=== PATIENT | male | born 1965 | race Caucasian/White ===

== ENCOUNTER 2016-11-02 11:42 | Emergency (ER) | payer BC ==
[~2016-11-02] VITALS: Ht 172.7 cm; Wt 75.0 kg
[~2016-11-02 11:42] MED LIST: INDOCIN25 MG PO; LORTAB 10-325 M1 TAB PO; NO; PERCOCET 5/325M1 TAB PO; ZPAK PO
[2016-11-02 13:12] LABS: HEMATOCRIT 48.5 % (39.0-50.0); IMMATURE GRANULOCYTES 0.3 % (0.0-1.0); MEAN CORPUSCULAR HGB 31.9 pG CALC (26.0-32.0); MEAN CORPUSCULAR HGB CONC 37.1 g/L CALC (32.0-36.0); NEUT# 5.77 thou/uL (1.82-7.42); RED BLOOD COUNT 5.64 mill/uL (4.70-6.10)
[2016-11-02 13:13] LABS: ALBUMIN 4.4 g/dL (3.2-5.0); ALKALINE PHOSPHATASE 74 u/l (38-126); ANION GAP 15 (6-22 (CALC)); BILIRUBIN, TOTAL 1.3 mg/dL (0.0-1.4); BUN 10 mg/dL (9-20); BUN/CREATININE RATIO 11 (12-20 (CALC)); CALCIUM 9.5 mg/dL (8.4-10.2); CARBON DIOXIDE 28 mmol/l (22-30); CHLORIDE 105 mmol/l (95-108); CREATININE 0.9 mg/dL (0.7-1.3); GFR > 60 ML/MIN (>=60 (CALC)); GFR FOR AFR.AMER. > 60 ML/MIN (>=60 (CALC)); GLUCOSE 94 mg/dL (75-110); POTASSIUM 3.8 mmol/l (3.5-5.1); SGOT/AST 48 u/l (17-59); SGPT/ALT 77 u/l (21-72); SODIUM 144 mmol/l (137-146); TOTAL PROTEIN 7.3 g/dL (6.3-8.2)
[2016-11-02] MEDS ORDERED: CLONIDINE0.1 MG PO (14:45)
[2016-11-02] MEDS ORDERED: PREVACID30 M3 PO (14:45)
[2016-11-02 14:55] VITALS: BP 174/108
== END 2016-11-02 15:01 | disposition home or self-care (01) | DRG 156 ==
LOC: ED 11:42
PROVIDERS: Emergency Medicine
DX: R07.0 Pain in throat (principal); I10 Essential (primary) hypertension; B19.20 Unspecified viral hepatitis C without hepatic coma; F17.220 Nicotine dependence, chewing tobacco, uncomplicated; Z91.14 Patient's other noncompliance with medication regimen
CPT/HCPCS: Q9967

== ENCOUNTER 2022-04-29 09:21 | Inpatient (IN) | payer SELFPAY ==
[~2022-04-29] VITALS: Ht 172.7 cm; Wt 98.9 kg
[2022-04-29] VITALS (62 sets, daily range): BP systolic 124–283; BP diastolic 64–154
[~2022-04-29 09:21] MED LIST changes: +CLONIDINE0.1 MG PO; +PREVACID30 M3 PO
--- NOTE | 2022-04-29 09:34 | NUR ---
PT AMBULATES TO ROOM 14 FOR EVAL OF ELEVATED BP AND HEADACHE
[2022-04-29 09:54] LABS: IMMATURE GRANULOCYTES 0.1 % (0.0-5.0); MEAN CELL VOLUME 90.5 fL CALC (80.0-100.0); MEAN CORPUSCULAR HGB 32.5 pG CALC (26.0-32.0); MEAN CORPUSCULAR HGB CONC 35.9 g/dL CAL (32.0-36.0); NEUT# 5.93 thou/uL (1.82-7.42); RED BLOOD COUNT 3.91 mill/uL (4.70-6.10); RED CELL DISTRI WIDTH 12.8 % (11.5-15.5)
[2022-04-29 09:59] LABS: HEMATOCRIT 35.4 % (39.0-50.0); HEMOGLOBIN 12.7 g/dl (14.0-18.0)
[2022-04-29 10:19] LABS: BILIRUBIN, TOTAL 1.8 mg/dL (0.0-1.4); POTASSIUM 3.2 mmol/l (3.5-5.1); TOTAL PROTEIN 6.6 g/dL (6.3-8.2)
[2022-04-29 10:20] LABS: CREATININE 4.3 mg/dL (0.7-1.3)
--- NOTE | 2022-04-29 10:43 | NUR ---
REASSESSED. NAD. VITALS CHECKED, DR. ENGLISH IS AWARE OF ELEVATED BP. MEDICATED PER SEP. CALL LIGHT IS IN REACH. INSTRUCTED PATIENT FOR COLLECTING URINE SAMPLE.
[2022-04-29 11:10] LABS: URINE BILIRUBIN - DIPSTICK NEGATIVE (NEGATIVE); URINE BLOOD DIPSTICK LARGE (NEGATIVE); URINE COLOR YELLOW; URINE GLUCOSE - DIPSTICK NEGATIVE (NEGATIVE); URINE KETONE NEGATIVE (NEGATIVE); URINE LEUK ESTERASE NEGATIVE (NEGATIVE); URINE PROTEIN - DIPSTICK >=300 mg/dL (NEG-TRACE); URINE UROBILINOGEN - DIPSTICK 0.2 E.U./dL (0.2)
--- NOTE | 2022-04-29 11:30 | NUR ---
Reassessment of patient completed. No distress noted.
[2022-04-29 11:31] LABS: URINE NITRITE - DIPSTICK NEGATIVE (Negative)
[2022-04-29 11:39] LABS: URINE RBC 0-2 RBC/hpf (0-5)
[2022-04-29 11:40] LABS: URINE BACTERIA FEW hpf
[2022-04-29 11:41] LABS: URINE WBC 0-2 WBC/hpf (0-5)
--- NOTE | 2022-04-29 11:52 | NUR ---
PT BP WAS 188/102. LOWER THAT SBP GOAL TARGET. DR. ENGLISH INSTRUCTED FOR NICARDIPINE DRIP TO BE TITRATED DOWN TO 2.5 MG / HR.
--- NOTE | 2022-04-29 12:19 | NUR ---
PER DR. GARCIA, SBP TARGET IS 180 THEN STOP NICARDIPINE DRIP. PATIENT SBP TARGET IS 178. NICARDIPINE DRIP HAS BEEN STOPPED.
--- NOTE | 2022-04-29 12:26 | NUR ---
PATIENT DEPARTED ED VIA STRETCHER AND MONITOR WITH PATIENT BELONGINGS. PATIENT DIET TRAY WAS SENT WITH PATIENT. REPORT GIVEN TO BRIAN, RN FOR ICU BED 8, REPORTED THAT NICARDIPINE DRIP WAS STOPPED DUE TO DR. GARCIA VERBAL ORDER FOR IT TO BE STOPPED IF SBP TARGET DROPS BELOW 180. VITALS CHECKED. NAD. NO CONCERNS VERBALIZED.
--- NOTE | 2022-04-29 19:45 | NUR ---
awake. watching tv. denies distress. hall monitor shows sinus rhythm. #18 lfa. ivf infusing well. po fluids taken well. voids per urinal. fall precautions cont.
--- NOTE | 2022-04-29 22:00 | NUR ---
eyes closed. no distress. bread icer shows sinus rhythm.
[2022-04-30] VITALS (69 sets, daily range): BP systolic 124–180; BP diastolic 70–120
--- NOTE | 2022-04-30 00:01 | NUR ---
eyes closed. no distress. security monitor shows sinus rhythm.
--- NOTE | 2022-04-30 02:00 | NUR ---
resting quietly. resps even & unlabored. no apparent distress.
--- NOTE | 2022-04-30 05:03 | NUR ---
lab here. blood drawn.
[2022-04-30 05:15] LABS: HEMOGLOBIN 11.7 g/dl (14.0-18.0); MEAN CELL VOLUME 89.1 fL CALC (80.0-100.0); MEAN CORPUSCULAR HGB 32.6 pG CALC (26.0-32.0); MEAN CORPUSCULAR HGB CONC 36.6 g/dL CAL (32.0-36.0); RED BLOOD COUNT 3.59 mill/uL (4.70-6.10); RED CELL DISTRI WIDTH 12.4 % (11.5-15.5)
[2022-04-30 05:38] LABS: ALBUMIN 3.8 g/dL (3.2-5.0); CREATININE 4.8 mg/dL (0.7-1.3); POTASSIUM 3.3 mmol/l (3.5-5.1)
--- NOTE | 2022-04-30 19:45 | NUR ---
awake. denies distress. quality assurance monitor final shows sinus rhythm. #18 lfa ivf infusing well. po fluids taken well. voids per urinal. fall precautions cont.
--- NOTE | 2022-04-30 22:00 | NUR ---
eyes closed. no distress.
[2022-05-01] VITALS (53 sets, daily range): BP systolic 125–183; BP diastolic 71–108
--- NOTE | 2022-05-01 00:01 | NUR ---
eyes closed. ui engineer shows sinus rhythm.
--- NOTE | 2022-05-01 02:00 | NUR ---
reting quietly. resps even & unlabored. no apparent distress.
--- NOTE | 2022-05-01 04:00 | NUR ---
eyes closed. no distress.
--- NOTE | 2022-05-01 06:10 | NUR ---
lab here. blood drawn.
[2022-05-01 07:03] LABS: ALBUMIN 3.4 g/dL (3.2-5.0)
[2022-05-01 07:07] LABS: CREATININE 5.2 mg/dL (0.7-1.3); POTASSIUM 4.2 mmol/l (3.5-5.1)
[2022-05-02] VITALS (29 sets, daily range): BP systolic 116–194; BP diastolic 66–113
[2022-05-02 05:55] LABS: ALBUMIN 3.3 g/dL (3.2-5.0); CREATININE 4.9 mg/dL (0.7-1.3)
--- NOTE | 2022-05-02 10:11 | NUR ---
Pt off floor to Echo, and Ultrasound. Pt in no notable distress ant this time.
--- NOTE | 2022-05-02 18:44 | NUR ---
While having diner pt. became nauseous ansd had an episode of emisis. Pt stated he felt better afterwards, and stated he did not want an antiemtic.
[2022-05-03] VITALS (10 sets, daily range): BP systolic 113–152; BP diastolic 61–91
[2022-05-03 05:27] LABS: ALBUMIN 3.1 g/dL (3.2-5.0)
[2022-05-03 05:31] LABS: CREATININE 5.3 mg/dL (0.7-1.3)
[2022-05-03] MEDS ORDERED: NORMODYNE/TRAN100 MG PO (09:14)
[2022-05-03] MEDS ORDERED: NORVASC10 M1 PO (09:15)
[2022-05-03] MEDS ORDERED: HYDRALAZINE HC100 MG PO (09:16)
--- NOTE | 2022-05-03 10:09 | NUR ---
PT AAOX3, IN NO DISTRESS, AND DENIES ANY PAIN. DISCHARGE INSTRUCTIONS AND EDUCTION REVIEWED WITH PT. PT VERBALIZED UNDERSTANDING. PT GATHERED AL BELONGINGS. IV REMOVED, AND INTACT. DRESSING APPLIED. PT
== END 2022-05-03 09:40 | disposition home or self-care (01) | DRG 304 ==
LOC: ED 09:21 → ED-I 11:23 → ED 11:41 → ICU 11:42
PROVIDERS: Family Medicine; Internal Medicine Nephrology; ADMIT Internal Medicine; ATTEND Internal Medicine
DX: I16.1 Hypertensive emergency (principal); N17.0 Acute kidney failure with tubular necrosis; E87.1 Hypo-osmolality and hyponatremia; E87.20 Acidosis, unspecified; N18.4 Chronic kidney disease, stage 4 (severe); I12.9 Hypertensive chronic kidney disease with stage 1 through stage 4 chronic kidney disease, or unspecified chronic kidney disease; B18.2 Chronic viral hepatitis C; T46.5X6A Underdosing of other antihypertensive drugs, initial encounter; R80.9 Proteinuria, unspecified; R31.9 Hematuria, unspecified; E87.6 Hypokalemia; D64.9 Anemia, unspecified; F17.220 Nicotine dependence, chewing tobacco, uncomplicated; E83.39 Other disorders of phosphorus metabolism; Z91.120 Patient's intentional underdosing of medication regimen due to financial hardship

== ENCOUNTER 2024-08-13 11:33 | Observation (INO) | payer SELFPAY ==
[~2024-08-13] VITALS: Ht 172.7 cm; Wt 67.7 kg
[2024-08-13] VITALS (58 sets, daily range): BP systolic 122–246; BP diastolic 61–151
[~2024-08-13 11:33] MED LIST changes: +HYDRALAZINE HC100 MG PO; +NORMODYNE/TRAN100 MG PO; +NORVASC10 M1 PO
--- NOTE | 2024-08-13 11:33 | NUR ---
T TO ER ROOM 4
[2024-08-13 12:00] LABS: BASO% 0.7 % (0-3); EOS% 2.2 % (0-8); IMMATURE GRANULOCYTES 0.2 % (0.0-5.0); MEAN CELL VOLUME 90.3 fL CALC (80.0-100.0); MEAN CORPUSCULAR HGB 30.7 pG CALC (26.0-32.0); MONO% 5.8 % (2-13); NEUT# 7.03 thou/uL (1.82-7.42); NEUT% 74.1 % (42-76); RED BLOOD COUNT 4.72 mill/uL (4.70-6.10); RED CELL DISTRI WIDTH 13.9 % (11.5-15.5)
--- NOTE | 2024-08-13 12:00 | NUR ---
PT HAS HIGH BP AND HEADACHE 05/02. MD IS NOTIFIED. AWAITING MED ORDERS.
[2024-08-13 12:03] LABS: HEMATOCRIT 42.6 % (39.0-50.0); HEMOGLOBIN 14.5 g/dl (14.0-18.0)
[2024-08-13] MEDS ORDERED: hydrALAZINE HCL 20 MG/ML VIAL(1 ML) IV ONE ×2 (12:15→13:10)
[2024-08-13] MEDS ORDERED: ONDANSETRON HCl 4 MG/2 ML SDV IV ONE (12:15)
[2024-08-13 12:20] LABS: BILIRUBIN, TOTAL 1.2 mg/dL (0.2-1.3); POTASSIUM 4.3 mmol/l (3.5-5.1); TOTAL PROTEIN 6.8 g/dL (6.3-8.2)
--- NOTE | 2024-08-13 12:20 | NUR ---
PT EDUCATED ON NEED FOR A URINE SAMPLE. URIANAL PLACED AT BEDSIDE WITHIN REACH. CALL LIGHT AT SIDE. PT DENIES ANY CURRENT NEEDS.
[2024-08-13 12:24] LABS: ALBUMIN 3.9 g/dL (3.2-5.0); CREATININE 3.1 mg/dL (0.7-1.3)
--- NOTE | 2024-08-13 12:48 | NUR ---
PT MEDICATED PER [facility]. PT TOLERATED WELL. CALL LIGHT IN REACH. LIGHTS DIMMED FOR COMFORT.
--- NOTE | 2024-08-13 13:30 | NUR ---
MD NOTIFIED OF PTS CONTIMNUED ELEVATED BP. AWAITING ORDERS.
--- NOTE | 2024-08-13 14:15 | NUR ---
PTS NICARDIPINE INFUSING AWAITING PHARMACY VERIFACTION TO SCAN MEDIACTION IN [facility].
[2024-08-13] MEDS ORDERED: NORMODYNE/TRAN100 MG PO (14:22)
[2024-08-13] MEDS ORDERED: LOSARTAN POTASS50 MG PO (14:22)
[2024-08-13] MEDS ORDERED: B121000 MC1 (14:22)
[2024-08-13] MEDS ORDERED: MULTI VIT PO (14:23)
[2024-08-13] MEDS ORDERED: D350 MC1 (14:23)
--- NOTE | 2024-08-13 14:29 | NUR ---
PT IN ROOM VOMITING. THIS NURSE ASK MD FOR ANTINAUSEA MEDS. AWAITING ORDERS
[2024-08-13] MEDS ORDERED: ACETAMINOPHEN 325 MG/TAB PO PRN (14:55)
[2024-08-13] MEDS ORDERED: MAGNESIUM HYDROXIDE 30 ML UDC PO PRN (14:55)
--- NOTE | 2024-08-13 14:57 | NUR ---
SPOKE WITH LAZARO, SHE STATED SHE WILL PUT IN ORDERS.
--- NOTE | 2024-08-13 15:13 | NUR ---
BEDSIDE REPORT GIVEN TO VIPIN IN ICU.
[2024-08-13] MEDS ORDERED: niCARdipine HCL 25 MG in DEXTROSE 5% 240 ML IV PRN (15:15)
--- NOTE | 2024-08-13 15:20 | NUR ---
PT BOUGHT UP BY CACHORRO TEAGUE VIA STRETCHER. PT IS AWAKE. BEDSIDE REPORT RECEIVED. PT IS IN HIS ROOM WITH CALL LIGHT IN HAND. PT STATES UNDSTANDING OF ROOM, CALL LIGHT AND FALL PRECAUTIONS. PT'S GIRLFRIEND BROUGT IN TO SIT AT THE BEDSIDE.
[2024-08-13] MEDS ORDERED: Heparin SODIUM (Porcine) 5,000 UNITS/ML SDV SC SCH (15:30)
--- NOTE | 2024-08-13 19:45 | NUR ---
awake. denies h/a, n/v. cardiac care unit nurse shows sinus rhythm. ivf infusing well. po fluids taken well. voids per urinal. fall precautions cont. girlfriend @ bedside.
--- NOTE | 2024-08-13 22:00 | NUR ---
eyes closed. no distress.
[2024-08-14] VITALS (104 sets, daily range): BP systolic 125–194; BP diastolic 63–112
--- NOTE | 2024-08-14 00:01 | NUR ---
pvc monitor shows sinus rhythm.
--- NOTE | 2024-08-14 02:00 | NUR ---
resting quietly. resps even & unlabored. no apparent distress.
--- NOTE | 2024-08-14 05:10 | NUR ---
lab here. blood drawn.
[2024-08-14 05:51] LABS: BASO% 0.6 % (0-3); EOS% 0.7 % (0-8); HEMATOCRIT 40.3 % (39.0-50.0); HEMOGLOBIN 13.2 g/dl (14.0-18.0); IMMATURE GRANULOCYTES 0.1 % (0.0-5.0); LYMPH% 21.3 % (15-41); MEAN CELL VOLUME 94.4 fL CALC (80.0-100.0); MEAN CORPUSCULAR HGB 30.9 pG CALC (26.0-32.0); MEAN CORPUSCULAR HGB CONC 32.8 g/dL CAL (32.0-36.0); MONO% 6.8 % (2-13); NEUT# 6.73 thou/uL (1.82-7.42); NEUT% 70.5 % (42-76); RED BLOOD COUNT 4.27 mill/uL (4.70-6.10)
[2024-08-14 05:55] LABS: ALBUMIN 3.5 g/dL (3.2-5.0); BILIRUBIN, TOTAL 0.9 mg/dL (0.2-1.3); CREATININE 3.3 mg/dL (0.7-1.3); TOTAL PROTEIN 6.2 g/dL (6.3-8.2)
--- NOTE | 2024-08-14 08:00 | NUR ---
PT IS LAYING IN BED AWAKE. CALL LIGHT IN REACH.
[2024-08-14] MEDS ORDERED: amLODIPine BESYLATE 5 MG/TAB PO SCH (09:00)
[2024-08-14] MEDS ORDERED: hydrALAZINE HCL 25 MG/TAB PO SCH ×2 (09:00→18:00)
[2024-08-14] MEDS ORDERED: LABETALOL HCL 100 MG/TAB PO SCH (09:00)
--- NOTE | 2024-08-14 10:00 | NUR ---
PT IS LAYING IN BED AWAKE, CALL LIGHT IN REACH.
[2024-08-14] MEDS ORDERED: hydrALAZINE HCL 20 MG/ML VIAL(1 ML) IV PRN (10:40)
--- NOTE | 2024-08-14 12:00 | NUR ---
PT IS LAYING IN BED AWAKE. CALL LIGHT IN REACH.
--- NOTE | 2024-08-14 14:00 | NUR ---
PT IS LAYING IN BED AWAKE, CALL LIGHT IN REACH. GIRLFRIEND AT BEDSIDE.
--- NOTE | 2024-08-14 16:38 | NUR ---
DR. ORLANDO NOTIFIED OF PT BLOOD PRESSURE OF 170/98. SEE NEW ORDERS
[2024-08-14] MEDS ORDERED: LABETALOL HCL 20 MG/ 4 ML CARTRG IV PRN (16:55)
--- NOTE | 2024-08-14 17:38 | NUR ---
DR. ORLANDO NOTIFIED OF PT BP 182/103. SEE NEW ORDERS.
--- NOTE | 2024-08-14 21:00 | NUR ---
awake. denies distress. beach expert shows sinu rhythm. po fluids taken well. voids per urinal. fall precautions cont.
[2024-08-14] MEDS ORDERED: DEXTROSE 5% 1,000 ML IV PRN (22:25)
--- NOTE | 2024-08-14 22:30 | NUR ---
urine spec collected & sent to lab.
[2024-08-15] VITALS (17 sets, daily range): BP systolic 125–175; BP diastolic 70–103
--- NOTE | 2024-08-15 00:10 | NUR ---
eyes closed. no distress. satellite project site monitor shows sinus rythm.
--- NOTE | 2024-08-15 02:00 | NUR ---
resting quietly. no distress.
[2024-08-15 03:49] LABS: URINE BILIRUBIN - DIPSTICK Negative (NEGATIVE); URINE BLOOD DIPSTICK Negative (NEGATIVE); URINE CLARITY Clear; URINE COLOR Yellow; URINE GLUCOSE - DIPSTICK Negative (NEGATIVE); URINE KETONE Negative (NEGATIVE); URINE LEUK ESTERASE Negative (Negative); URINE NITRITE - DIPSTICK Negative (Negative); URINE PH 5.5 (4.5-8.0); URINE PROTEIN - DIPSTICK 100 mg/dL (NEG-TRACE); URINE SPECIFIC GRAVITY <=1.005; URINE UROBILINOGEN - DIPSTICK 0.2 E.U./dL (0.2)
[2024-08-15 03:55] LABS: URINE WBC 0-2 WBC/hpf (0-5)
--- NOTE | 2024-08-15 04:00 | NUR ---
eyes closed. personnel monitor shows sinus rhythm.
--- NOTE | 2024-08-15 05:30 | NUR ---
lab here. blood drawn.
[2024-08-15 05:46] LABS: HEMOGLOBIN 13.6 g/dl (14.0-18.0); MEAN CELL VOLUME 91.9 fL CALC (80.0-100.0); MEAN CORPUSCULAR HGB 30.5 pG CALC (26.0-32.0); MEAN CORPUSCULAR HGB CONC 33.2 g/dL CAL (32.0-36.0); RED BLOOD COUNT 4.46 mill/uL (4.70-6.10); RED CELL DISTRI WIDTH 13.6 % (11.5-15.5)
[2024-08-15 06:01] LABS: ALBUMIN 3.3 g/dL (3.2-5.0); CREATININE 3.5 mg/dL (0.7-1.3); POTASSIUM 4.2 mmol/l (3.5-5.1)
[2024-08-15 06:07] LABS: ALBUMIN 3.4 g/dL (3.2-5.0); BILIRUBIN, TOTAL 0.9 mg/dL (0.2-1.3); CREATININE 3.5 mg/dL (0.7-1.3); MAGNESIUM 2.2 mg/dL (1.6-2.3); POTASSIUM 4.1 mmol/l (3.5-5.1); TOTAL PROTEIN 6.3 g/dL (6.3-8.2)
--- NOTE | 2024-08-15 07:25 | NUR ---
REPORT RECEIVED FROM NIGHT NURSE. PT IS A/O. ADMITTED INITIALLY FOR HTN; CURRENT BP 137/90. PT ASSESSED BY DR. ORLANDO THIS MORNING. POSSIBLE DC TODAY IF BP REMAINS CONTROLLED ON CURRENT MEDICATIONS. LUNG SOUNDS CLEAR; PT IS ON RA. NO COUGH OR SOB NOTED. HEART SOUNDS S1S2; NSR ON MONITOR. BS ACTIVE; ABDOMEN SOFT, NON-TENDER. PULSES STRONG ALL EXTREMETIES. SKIN W/D/I. PT DENIES ANY PAIN. CALL LIGHT IN REACH. VSS.
[2024-08-15] MEDS ORDERED: LABETALOL HCL 100 MG/TAB PO SCH (09:00)
--- NOTE | 2024-08-15 09:30 | NUR ---
NO CHANGES TO PT STATUS. LYING IN BED. CALL LIGHT AND BELONGINGS WITHIN REACH. BP WELL CONTROLLED.
--- NOTE | 2024-08-15 11:00 | NUR ---
no changes to pt status. BP stable.
--- NOTE | 2024-08-15 12:11 | NUR ---
NO CHANGES TO PT STATUS. PT GIVEN LUNCH TRAY. VISITOR AT BEDSIDE. BP REMAINS CONTROLLED. CALL LIGHT IN REACH. VSS.
[2024-08-15] MEDS ORDERED: HYDRALAZINE100 MG PO (13:04)
[2024-08-15] MEDS ORDERED: AMLODIPINE BESYL5 MG PO (13:06)
[2024-08-15] MEDS ORDERED: LABETALOL HYDR200 MG PO (13:06)
--- NOTE | 2024-08-15 13:12 | NUR ---
PT SEEN BY DR. ORLANDO. WILL BE DISCHARGED TODAY. PT AND VISITOR AWARE AND AGREEABLE.
--- NOTE | 2024-08-15 13:30 | NUR ---
PT GIVEN DISCHARGE EDUCATION. NEW AND CHANGED PRESCRIPTIONS REVIEWED WITH PT. ALL QUESTIONS ANSWERED. PT EDUCATED TO MONITOR BP AT HOME AND AWARE OF AT WHAT POINT HE SHOULD RETURN TO ED. PT BELONGINGS GATHERED. IV'S REMOVED.
--- NOTE | 2024-08-15 13:45 | NUR ---
PT SCRIPTS CALLED INTO [facility] PER PT REQUEST. PT TAKEN TO ENTRANCE BY WHEELCHAIR IN GOOD CONDITION.
== END 2024-08-15 13:45 | disposition home or self-care (01) | DRG 305 ==
LOC: ED 11:33 → ED-I 13:39 → ED 14:01 → ICU 14:02
PROVIDERS: Family Medicine; Internal Medicine Nephrology; Nurse Practitioner Family; ADMIT Internal Medicine; ATTEND Internal Medicine
DX: I16.1 Hypertensive emergency (principal); N18.4 Chronic kidney disease, stage 4 (severe); N17.9 Acute kidney failure, unspecified; E87.20 Acidosis, unspecified; E86.9 Volume depletion, unspecified; I12.9 Hypertensive chronic kidney disease with stage 1 through stage 4 chronic kidney disease, or unspecified chronic kidney disease; F17.220 Nicotine dependence, chewing tobacco, uncomplicated; D64.9 Anemia, unspecified; B18.2 Chronic viral hepatitis C; T46.5X6A Underdosing of other antihypertensive drugs, initial encounter; Z91.120 Patient's intentional underdosing of medication regimen due to financial hardship
CPT/HCPCS: J0360; J1644; J2405

== ENCOUNTER 2024-08-24 09:14 | Emergency (ER) | payer SELFPAY ==
[~2024-08-24] VITALS: Ht 172.7 cm; Wt 62.8 kg
[2024-08-24] VITALS (8 sets, daily range): BP systolic 130–159; BP diastolic 96–114
[~2024-08-24 09:14] MED LIST changes: +AMLODIPINE BESYL5 MG PO; +B121000 MC1; +D350 MC1; +HYDRALAZINE100 MG PO; +LABETALOL HYDR200 MG PO; +LOSARTAN POTASS50 MG PO; +MULTI VIT PO
[2024-08-24] MEDS ORDERED: ONDANSETRON HCl 4 MG/2 ML SDV IV ONE (09:30)
[2024-08-24] MEDS ORDERED: MORPHINE SULFATE 4 MG/ML VIAL IV ONE ×2 (09:30→10:50)
[2024-08-24] MEDS ORDERED: SODIUM CHLORIDE 0.9% 1,000 ML IV ONE ×3 (09:35→12:40)
[2024-08-24 09:55] LABS: BASO% 0.1 % (0-3); HEMATOCRIT 45.4 % (39.0-50.0); IMMATURE GRANULOCYTES 0.2 % (0.0-5.0); LYMPH% 2.7 % (15-41); MEAN CELL VOLUME 87.3 fL CALC (80.0-100.0); MEAN CORPUSCULAR HGB 30.4 pG CALC (26.0-32.0); MEAN CORPUSCULAR HGB CONC 34.8 g/dL CAL (32.0-36.0); MONO% 5.2 % (2-13); NEUT# 9.72 thou/uL (1.82-7.42); NEUT% 91.8 % (42-76); RED BLOOD COUNT 5.2 mill/uL (4.70-6.10); RED CELL DISTRI WIDTH 13.3 % (11.5-15.5)
[2024-08-24 09:56] LABS: HEMOGLOBIN 15.8 g/dl (14.0-18.0)
[2024-08-24 10:06] LABS: ALBUMIN 3.6 g/dL (3.2-5.0)
[2024-08-24 10:13] LABS: BILIRUBIN, TOTAL 3.9 mg/dL (0.2-1.3); POTASSIUM 5.1 mmol/l (3.5-5.1)
[2024-08-24 10:14] LABS: CREATININE 6.3 mg/dL (0.7-1.3)
[2024-08-24 10:58] LABS: URINE BLOOD DIPSTICK Negative (NEGATIVE); URINE GLUCOSE - DIPSTICK 100 mg/dL (NEGATIVE); URINE KETONE Negative (NEGATIVE); URINE LEUK ESTERASE Negative (NEGATIVE); URINE NITRITE - DIPSTICK Negative (Negative); URINE PROTEIN - DIPSTICK 100 mg/dL (NEG-TRACE)
[2024-08-24 10:59] LABS: URINE COLOR Yellow; URINE EPITHELIAL CELLS MODERATE EPI/hpf (0-FEW); URINE MUCUS MANY hpf (NONE-FEW)
[2024-08-24 13:33] LABS: CREATININE 6.1 mg/dL (0.7-1.3); POTASSIUM 5.3 mmol/l (3.5-5.1)
== END 2024-08-24 14:02 | DRG 389 ==
LOC: ED 09:14
PROVIDERS: Family Medicine
PROC: 0T9B70Z Drainage of Bladder with Drainage Device, Via Natural or Artificial Opening (ICD-10-PCS; principal; 2024-08-24)
DX: K56.609 Unspecified intestinal obstruction, unspecified as to partial versus complete obstruction (principal); E87.1 Hypo-osmolality and hyponatremia; N17.9 Acute kidney failure, unspecified; I12.9 Hypertensive chronic kidney disease with stage 1 through stage 4 chronic kidney disease, or unspecified chronic kidney disease; N18.9 Chronic kidney disease, unspecified; B19.20 Unspecified viral hepatitis C without hepatic coma; Z20.822 Contact with and (suspected) exposure to COVID-19
CPT/HCPCS: J2405